=== PATIENT | male | born 1965 | race African-American/Black ===

== ENCOUNTER 2018-06-29 18:45 | Emergency (ER) | payer SELFPAY, MEDICAID ==
[~2018-06-29] VITALS: Ht 172.7 cm; Wt 111.1 kg
[2018-06-29 18:50] VITALS: BP 123/88
--- NOTE | 2018-06-29 18:50 | NUR ---
ED Nurse Note: pt brought in to ER by [employer] for the medical clearance for retirement. pt aao x4 and calm and cooperative. pt denied pain.
--- NOTE | 2018-06-29 18:57 | Emergency Room Report ---
History of Present Illness General Chief Complaint: Medical Clearance Source: Patient Present Illness HPI 53-year-old male patient presents the ER brought in by police for okay to book. Patient denies acute complaints currently. Police report that patient was arrested for stealing, states that he has a history of pacemaker so they brought him in. Patient denies chest pain, shortness of breath, abdominal pain. Denies other acute complaints. Contrary to triage note, patient does not have any complaints of wrist pain, states that the handcuffs irritate him however denies recent injury or trauma. Denies other aggravating or relieving factors. Allergies: Coded Allergies: No Known Allergies (Unverified , 06/29/18) Patient History Past Medical History: see triage record Reviewed Nursing Documentation: PMH: Agreed; PSxH: Agreed Nursing Documentation-PMH Past Medical History: No History, Except For Hx Hypertension: Yes Hx Pacemaker: Yes Hx Diabetes: Yes Review of Systems All Other Systems: negative except mentioned in HPI Physical Exam Vital Signs Date Time Temp Pulse Resp B/P (MAP) Pulse Ox O2 Delivery O2 Flow Rate FiO2 06/29/18 18:46 97.5 106 18 123/88 99 Room Air Sp02 EP Interpretation: reviewed, normal General Appearance: well appearing, no apparent distress, alert, GCS 15, non- toxic Head: normocephalic, atraumatic Eyes: bilateral eye normal inspection, bilateral eye PERRL ENT: hearing grossly normal, normal pharynx, no angioedema, normal voice, uvula midline, moist mucus membranes Neck: full range of motion, no meningismus, no bony tend Respiratory: lungs clear, normal breath sounds, no rhonchi, no respiratory distress, no accessory muscle use, no wheezing, speaking full sentences Cardiovascular #1: regular rate, rhythm, no edema Cardiovascular #2: 2+ radial (R), 2+ radial (L) Musculoskeletal: back normal, digits/nails normal, gait/station normal, normal range of motion, non-tender, other - NVI, cap refill <2 seconds, no snuffbox tenderness Neurologic: alert, oriented x3, responsive, motor strength/tone normal, sensory intact Psychiatric: mood/affect normal Skin: no rash Medical Decision Making PA Attestation Dr. Poole is my supervising Physician whom patient management has been discussed with. Diagnostic Impression: Primary Impression: Medical clearance for incarceration ER Course Pt. presents to the ED requesting medical clearance for booking. Multiple differentials considered. Patient Vitals Signs WNL, patient is afebrile. ER COURSE: PE benign. No skull depression, lungs clear to auscultation, no abdominal TTP. Patient not suicidal or homicidal at this time. Patient in no acute distress, nontoxic appearing, breathing without difficulty. DISCHARGE: At this time pt. is stable for d/c to police custody. Will provide printed patient care instructions, and any necessary prescriptions. Care plan and follow up instructions have been discussed with the patient prior to discharge - Please note that this Emergency Department Report was dictated using [facility] [employer] medical transcriptionist technology software, occasionally this can lead to erroneous entry secondary to interpretation by the dictation equipment. Last Vital Signs Date Time Temp Pulse Resp B/P (MAP) Pulse Ox O2 Delivery O2 Flow Rate FiO2 06/29/18 18:46 97.5 106 18 123/88 99 Room Air Disposition: HOME, SELF-CARE Condition: Stable Scripts Unable to Obtain Active Prescriptions or Reported Meds Additional Instructions: Followup with primary care provider in 3 -5 days. Take medications as directed. Patient questions asked and answered. ER precautions given, patient instructed to return to ER immediately for any new or worsening of symptoms. Matt Campbell Jun 29, 2018 18:57
[2018-06-29 19:00] VITALS: BP 139/88
--- NOTE | 2018-06-29 19:00 | NUR ---
ER DISCHARGE NOTE: Patient is cleared to be discharged per [facility], accompanied by [employer] officer Vj. pt is aox4, on room air, with stable vital signs. pt was cleared for [facility]cc by [facility]. pt was able to verbalize understanding, pt id band removed. pt is able to ambulate with steady gait. pt was taken by [employer] with handcuff on. pt took all belongings.
== END 2018-06-29 19:00 | disposition home or self-care (01) ==
LOC: EMR 19:00
DX: Z02.89 Encounter for other administrative examinations (principal); I10 Essential (primary) hypertension; E11.9 Type 2 diabetes mellitus without complications; Z95.0 Presence of cardiac pacemaker
CPT/HCPCS: 99282